=== PATIENT | male | born 1950 | race Caucasian/White ===

== ENCOUNTER 2021-03-06 08:39 | Emergency (ER) | payer MEDICARE ==
[~2021-03-06] VITALS: Ht 182.9 cm; Wt 88.6 kg
--- NOTE | 2021-03-06 09:23 | PHYS DOC ---
Past Medical History Past Medical History: High Cholesterol Additional Past Medical Histor: KIDNEY STONE FOR 3 YEARS Past Surgical History: No Surgical History General Adult EDM: Chief Complaint: LOWER BACK PAIN OR INJURY HPI: HPI: Patient is a 70 year old male who presents with left-sided low back/flank pain. Started when he woke up this morning. Radiates around to the front of the belly slightly. States that he was told that he has a kidney stone, that is "not causing an p roblems." Denies ever having pain related to a kidney stone before. Has been associated with some chills, sweating, and some mild nausea that he thinks is related to the pain. Denies any hematuria, dysuria, urgency, frequency. Was feeling in his usual state of health yesterday. No recent trauma. Review of Systems: Review of Systems: Constitutional: Denies fever. reports chills. Eyes: Denies change in visual acuity. [] HENT: Denies nasal congestion or sore throat. [] Respiratory: Denies cough or shortness of breath. [] Cardiovascular: Denies chest pain or edema. [] GI: Reports nausea. Denies abdominal pain, vomiting, bloody stools or diarrhea. [] : Denies dysuria. [] Musculoskeletal: Reports left-sided flank/back pain Integument: Denies rash. Reports diaphoresis. [] Neurologic: Denies headache, focal weakness or sensory changes. [] Endocrine: Denies polyuria or polydipsia. [] Lymphatic: Denies swollen glands. [] Psychiatric: Denies depression or anxiety. [] Heart Score: C/O Chest Pain: N/A Physical Exam: PE: Constitutional: Appears uncomfortable, rocking back and forth HENT: Normocephalic, atraumatic, Eyes: PERRLA, EOMI, conjunctiva normal, no discharge. [] Neck: Normal range of motion, no tenderness, supple, no stridor. [] Cardiovascular:Heart rate regular rhythm, no murmur [] Lungs & Thorax: Bilateral breath sounds clear to auscultation [] Abdomen: Bowel sounds normal, soft, no tenderness, no masses, no pulsatile masses. [] Skin: Warm, dry, no erythema, no rash. [] Back: No tenderness, no CVA tenderness. [] Extremities: No tenderness, no cyanosis, no clubbing, ROM intact, no edema. [] Neurologic: Alert and oriented X 3, normal motor function, normal sensory function, no focal deficits noted. [] Psychologic: Affect normal, judgement normal, mood normal. [] Current Patient Data: Vital Signs: Vital Signs Date Time Temp Pulse Resp B/P (MAP) Pulse Ox O2 Delivery O2 Flow Rate FiO2 03/06/21 08:57 80 28 128/93 (105) 99 Room Air EKG: EKG: [] Radiology/Procedures: Radiology/Procedures: [] Impression: [facility] [address] [place] [address] IMAGING REPORT Signed PATIENT: TOSIN TUCKER ACCOUNT: [id number] : 1950 LOCATION: ER AGE: 70 SEX: M EXAM STATUS: PRE ER ORD. PHYSICIAN: MORGAN CHU MD REASON: left flank pain PROCEDURE: CT ABDOMEN PELVIS WO CONTRAST EXAMINATION: Renal kidney stone study. INDICATION: Left flank pain COMPARISONS: None TECHNIQUE: Axial 3 mm thick sections were obtained without oral or IV contrast. Sagittal and coronal reformats were obtained. FINDINGS: KIDNEYS AND RENAL COLLECTING SYSTEMS RIGHT KIDNEY AND URETER: No evidence of right renal or ureteric calculi. No hydronephrosis. Within the limits of this noncontrast examination there are multiple hypoattenuating foci within the left kidney largest measures 2.7 cm in the right superior pole region with thin internal hyperattenuating septation with attenuation that of simple fluid, favoring a minimally complication cyst. LEFT KIDNEY AND URETER: There is a 1.2 cm calculus in the ureteropelvic junction with moderate upstream hydroureteronephrosis and periureteral and perinephric fat stranding. There is a 2.4 similar hypoattenuating focus in the inferior pole with attenuation of simple fluid. No focal suspicious renal lesions, within the limits of this noncontrast examination. URINARY BLADDER: Mild trabeculated wall thickening without associated inflammatory changes favoring sequela of partial obstruction secondary to the enlarged prostate gland. OTHER: Scattered areas of scarring and/or atelectasis most pronounced in the lingula. Liver is normal in size and attenuation. The spleen, adrenals, and pancreas are unremarkable. Mild distal esophageal wall thickening may relate to reflux dysphagia process. The stomach is unremarkable. No evidence of small bowel obstruction. There is stool within the distal portion of small bowel suggestive of delayed motility or incompetent ileocecal valve. The large bowel is without obstruction or acute inflammation. The appendix is not definitely visualized. No free intra-abdominal air or free fluid. No pathologically enlarged abdominal or pelvic lymph nodes. Extensive aortobiiliac atherosclerotic disease. No acute abnormality in the anterior abdominal wall. No acute osseous process. IMPRESSION: 1. 1.2 cm calculus resulting in obstructive uropathy in the left upper ureter. 2. Enlarged prostate gland. Recommend follow-up with urology if not already doing so. 3. Other chronic/incidental findings, as above. PRQS compliance statement - One or more of the following individualized dose reduction techniques were utilized for this study: 1. Automated exposure control 2. Adjustment of the mA and/or kV according to patient size 3. Use of iterative reconstruction technique Electronically signed by: Jackson Ha DO (03/06/2021 10:31 AM) [id number] DICTATED and SIGNED BY: JACKSON HA DO DATE: 03/06/21 [id number] 0 Course & Med Decision Making: Course & Med Decision Making Pertinent Labs and Imaging studies reviewed. (See chart for details) Patient is 70-year-old male with a history of a nonobstructive kidney stone who presents with atraumatic left flank/low back pain. No history of symptomatic kidney stones. Most concern for renal colic. Will obtain UA, BMP, CBC, CT abdomen/pelvis for initial work-up. 09 CT shows a 1.2 cm obstructive stone on the left. Creatinine 1.5, no baseline for comparison. UA did not appear infected, and has no infectious symptoms to suggest septic stone. Pain is well controlled after single dose of morphine. He has a urologist to follow-up with as an outpatient. He will call their office today to schedule an appointment. Will be discharged with a trial of pain control. Return precautions discussed for uncontrollable pain, fever, dysuria. [id number] Disclaimer: Yasmine Disclaimer: This electronic medical record was generated, in whole or in part, using a voice recognition dictation system. Departure Departure Impression: Primary Impression: Left renal stone Additional Impression: Renal colic Disposition: HOME / SELF CARE / HOMELESS Condition: STABLE Additional Instructions: You have a 1.2 CENTIMETER left sided stone in your ureter. This will hopefully pass on its own. Very often stones this big need surgical intervention to pass. So, please call one of the follow practice locations for urology follow up. [facility] / [place] [address] [place], [place] [id number] [place] [address] [place] [address] [place] [address] [facility], [address] [place] [address] You may need a PCP referral depending on insurance and particular urology practice requirements. The focus for now is on pain control. -Tylenol 1000 mg every 6 hours (do not exceed 4000 mg in one day). For pain not managed by the above you can take: Oxycodone 1 tab every 4-6 hours. For nausea: Zofran 4 mg every 6 hours, let it dissolve under your tongue. To help the stone pass there is a medication called tamsulosin. Please take 1 tab once daily. Scripts Oxycodone Hcl (OXYCODONE HCL) 5 Mg Capsule 5 MG PO PRN Q6HRS PRN for PAIN, #15 TAB 0 Refills Prov: MORGAN CHU MD 03/06/21 Tamsulosin Hcl (FLOMAX) 0.4 Mg Cap.er.24h 1 CAP PO DAILY, #30 CAP 0 Refills Prov: MORGAN CHU MD 03/06/21 Ondansetron Hcl (ZOFRAN) 4 Mg Tablet 1 TAB PO PRN Q6-8HRS for nausea, #20 TAB 0 Refills Prov: MORGAN CHU MD 03/06/21 MORGAN CHU MD Mar 06, 2021 09:23
[2021-03-06] MEDS ORDERED: ONDANSETRON PF 4 MG/2 ML VIAL. IVP ONE (09:30)
[2021-03-06] MEDS ORDERED: MORPHINE SULFATE 4 MG/ML INJ. IVP ONE (09:30)
[2021-03-06 09:45] LABS: BASO # 0.1 x10^3/uL (0.0-0.2); BASO % 1 % (0-3); EOS # 0.1 x10^3/uL (0.0-0.7); EOS % 1 % (0-3); HEMATOCRIT 49.2 % (39.0-53.0); HEMOGLOBIN 16.2 g/dL (13.0-17.5); LYMPH # 2.8 x10^3/uL (1.0-4.8); LYMPH % 18 % (24-48); MEAN CORPUSCULAR HEMOGLOBIN 31 pg (25-35); MEAN CORPUSCULAR HGB CONC 33 g/dL (31-37); MEAN CORPUSCULAR VOLUME 94 fL (79-100); MONO # 1.4 x10^3/uL (0.0-1.1); MONO % 9 % (0-9); NEUT # 10.9 x10^3/uL (1.8-7.7); NEUT % 71 % (31-73); PLATELET COUNT 237 x10^3/uL (140-400); RED BLOOD COUNT 5.24 x10^6/uL (4.30-5.70); RED CELL DISTRIBUTION WIDTH 13.5 % (11.5-14.5); WHITE BLOOD COUNT 15.3 x10^3/uL (4.0-11.0)
[2021-03-06 09:55] LABS: CALCIUM 8.7 mg/dL (8.5-10.1); CREATININE 1.5 mg/dL (0.7-1.3); POTASSIUM 3.7 mmol/L (3.5-5.1)
--- NOTE | 2021-03-06 10:34 | RAD ---
EXAMINATION: Renal kidney stone study. INDICATION: Left flank pain COMPARISONS: None TECHNIQUE: Axial 3 mm thick sections were obtained without oral or IV contrast. Sagittal and coronal reformats were obtained. FINDINGS: KIDNEYS AND RENAL COLLECTING SYSTEMS RIGHT KIDNEY AND URETER: No evidence of right renal or ureteric calculi. No hydronephrosis. Within the limits of this noncontr ast examination there are multiple hypoattenuating foci within the left kidney largest measures 2.7 c m in the right superior pole region with thin internal hyperattenuating septation with attenuation th at of simple fluid, favoring a minimally complication cyst. LEFT KIDNEY AND URETER: There is a 1.2 cm calculus in the ureteropelvic junction with moderate upstream hydroureteronephrosis and periureteral and perinephric fat stranding. There is a 2.4 similar hypoattenuating focus in the inferior pole with attenuation of simple fluid. No focal suspicious renal lesions, within the limits of this noncontrast examination. URINARY BLADDER: Mild trabeculated wall thickening without associated inflammatory changes favoring sequela of partial obstruction secondary to the enlarged prostate gland. OTHER: Scattered areas of scarring and/or atelectasis most pronounced in the lingula. Liver is normal in size and attenuation. The spleen, adrenals, and pancreas are unremarkable. Mild distal esophageal wall thickening may relate to reflux dysphagia process. The stomach is unremar kable. No evidence of small bowel obstruction. There is stool within the distal portion of small otrsten l suggestive of delayed motility or incompetent ileocecal valve. The large bowel is without obstructi on or acute inflammation. The appendix is not definitely visualized. No free intra-abdominal air or f ree fluid. No pathologically enlarged abdominal or pelvic lymph nodes. Extensive aortobiiliac atheros clerotic disease. No acute abnormality in the anterior abdominal wall. No acute osseous process. IMPRESSION: 1. 1.2 cm calculus resulting in obstructive uropathy in the left upper ureter. 2. Enlarged prostate gland. Recommend follow-up with urology if not already doing so. 3. Other chronic/incidental findings, as above. PRQS compliance statement - One or more of the following individualized dose reduction techniques wer e utilized for this study: 1. Automated exposure control 2. Adjustment of the mA and/or kV according to patient size 3. Use of iterative reconstruction technique Electronically signed by: Waqar Judd DO (03/06/2021 10:31 AM) [id number]
[2021-03-06 11:11] LABS: BILIRUBIN,URINE NEGATIVE (NEG); CLARITY,URINE CLEAR; COLOR,URINE YELLOW; NITRITE,URINE NEGATIVE (NEG); PROTEIN,URINE NEGATIVE (NEG-TRACE); UROBILINOGEN,URINE 0.2 mg/dL (0.2 mg/dL)
[2021-03-06 11:36] LABS: BACTERIA,URINE 0 /HPF (0-FEW); HYALINE CASTS, URINE FEW /HPF
[2021-03-06] MEDS ORDERED: TAMS0.4C97 PO (13:21)
[2021-03-06] MEDS ORDERED: OXYC5CAP PO (13:21)
[2021-03-06] MEDS ORDERED: ONDA4TAB7 PO (13:21)
[2021-03-06 13:35] VITALS: BP 142/86
== END 2021-03-06 13:35 | disposition home or self-care (01) ==
LOC: ER 08:39
DX: N13.2 Hydronephrosis with renal and ureteral calculous obstruction (principal); E78.00 Pure hypercholesterolemia, unspecified
CPT/HCPCS: 36415; 74176; 80048; 81001; 85025; 96374; 96375; 99285; J2270; J2405